=== PATIENT | female | born 1950 | race Caucasian/White ===

== ENCOUNTER 2016-09-05 21:49 | Observation (INO) | payer SELFPAY ==
[2016-09-05] MEDS ORDERED: Sodium Chloride 0.9% 1000 ML 1,000 ML IV STA ×2 (22:05→23:38)
[2016-09-05] MEDS ORDERED: Phenergan 25 MG INJ IV ONE ×2 (22:05→23:40)
[2016-09-05] MEDS ORDERED: Hydromorphone 1 mg/ml Ampule IV ONE (22:05)
[2016-09-05] MEDS ORDERED: Phenergan 25 MG INJ ONE ×2 (22:10→23:43)
[2016-09-05] MEDS ORDERED: Sodium Chloride 0.9% 1000 ML 1,000 ML ONE ×2 (22:10→23:43)
[2016-09-05] MEDS ORDERED: Hydromorphone 1 mg/ml Ampule ONE (22:10)
--- NOTE | 2016-09-05 22:13 | ERPHSYRPT ---
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 Unsure how many times she has vomited, sts that she has had 2 episodes of diarrhea tonight. Sts she was fine at 1900 tonight. Also sts abd pain, 8/10. Daughter sts pt is lethargic compared to normal. Triage Nursing Assessment: Pt alert, pt to room per wheelchair. Pt actively shoving finger down throat attempting to make self vomit upon arrival to room. Pt assisted from wheelchair to bed with assist of daughter. Pt skin flushed, warm to touch, skin diaphoretic. Physician History: ONE HOUR AGO ABOUT 2 HOURS AFTER EATING BERMUDIAN FOOD(CHICKEN, SHRIMP AND RICE) PT STARTED WITH VOMITING, DIARRHEA, DIAPHORESIS, SUBJECTIVE FEVER AND UPPER MID ABDOMINAL PAIN. Allergies/Adverse Reactions: levofloxacin [From Levaquin] Allergy (Verified 09/05/16 22:51) Immunizations Up to Date: Yes - Review of Systems Constitutional: Fever Abdominal/Gastrointestinal: Abdominal Pain, Vomiting, Diarrhea Endocrine: Excessive Sweating All Other Systems: Reviewed and Negative - Social History Smoking Status: Current every day smoker Exposure to second hand smoke: No Patient Lives Alone: No - Nursing Vital Signs Nursing Vital Signs: Initial Vital Signs Temperature 96.2 F Temperature Source Rectal Pulse Rate 80 Respiratory Rate 16 Blood Pressure [Right Arm] 136/67 Pain Intensity 8 - Physical Exam General Appearance: alert Eye Exam: PERRL/EOMI Ears, Nose, Throat Exam: TMs normal, pharynx normal, moist mucous membranes Neck Exam: normal inspection Respiratory Exam: lungs clear Cardiovascular Exam: normal heart sounds Gastrointestinal/Abdomen Exam: soft, tenderness (MILD EPIGASTRIC TENDERNESS), other (B.S. MODERATELY HYPERACTIVE AND NORMOTONIC.), No guarding Back Exam: normal range of motion Extremity Exam: normal inspection, No swelling Neurologic Exam: alert, cooperative Skin Exam: diaphoresis, other (FACE FLUSHED) SpO2 Interpretation: normal SpO2: 98 Oxygen Delivery: Room Air - Course Nursing assessment & vital signs reviewed: Yes Ordered Tests: Active Orders 24 hr Category Date Time Status Clean Catch Urine Specimen STAT Care 09/05/16 22:05 Active IV Insertion STAT Care 09/05/16 22:05 Active ABDOMEN AND PELVIS W/0 CONTRAS [CT] Stat Exams 09/05/16 22:06 Taken AMYLASE Stat Lab 09/05/16 22:38 Completed BLOOD CULTURE Stat Lab 09/05/16 23:58 Received CBC W DIFF Stat Lab 09/05/16 22:38 Completed CMP Stat Lab 09/05/16 22:38 Completed LIPASE Stat Lab 09/05/16 22:38 Completed Lactic Acid Urgent Lab 09/05/16 23:57 Completed MAG [MAGNESIUM] Stat Lab 09/05/16 22:38 Completed UA W/ MICROSCOPIC Stat Lab 09/05/16 23:00 Completed Transfer Order Routine Transfer 09/06/16 00:39 Ordered Medication Summary Discontinued Medications Generic Name Dose Route Start Last Admin Trade Name Freq PRN Reason Stop Dose Admin Hydromorphone HCl 1 mg 09/05/16 22:05 09/05/16 22:12 Hydromorphone 1 Mg/Ml Ampule IV 09/05/16 22:06 1 mg STAT ONE Administration Hydromorphone HCl Confirm 09/05/16 22:10 Hydromorphone 1 Mg/Ml Ampule Administered 09/05/16 22:11 Dose 1 mg .ROUTE .STK-MED ONE Sodium Chloride 1,000 mls @ 999 mls/hr 09/05/16 22:05 09/05/16 22:12 Sodium Chloride 0.9% 1000 Ml IV 09/05/16 23:05 999 mls/hr .Q1H1M STA Administration Sodium Chloride Confirm 09/05/16 22:10 Sodium Chloride 0.9% 1000 Ml Administered 09/05/16 22:11 Dose 1,000 mls @ ud .ROUTE .STK-MED ONE Sodium Chloride 1,000 mls @ 999 mls/hr 09/05/16 23:38 09/05/16 23:46 Sodium Chloride 0.9% 1000 Ml IV 09/06/16 00:38 999 mls/hr .Q1H1M STA Administration Sodium Chloride Confirm 09/05/16 23:43 Sodium Chloride 0.9% 1000 Ml Administered 09/05/16 23:44 Dose 1,000 mls @ ud .ROUTE .STK-MED ONE Ondansetron HCl 4 mg 09/05/16 22:49 09/05/16 22:55 Zofran 4 Mg/2 Ml Vial IV 09/05/16 22:50 4 mg STAT ONE Administration Ondansetron HCl Confirm 09/05/16 22:50 Zofran 4 Mg/2 Ml Vial Administered 09/05/16 22:51 Dose 4 mg .ROUTE .STK-MED ONE Promethazine HCl 12.5 mg 09/05/16 22:05 09/05/16 22:12 Phenergan 25 Mg Inj IV 09/05/16 22:06 12.5 mg STAT ONE Administration Promethazine HCl Confirm 09/05/16 22:10 Phenergan 25 Mg Inj Administered 09/05/16 22:11 Dose 25 mg .ROUTE .STK-MED ONE Promethazine HCl 12.5 mg 09/05/16 23:40 09/05/16 23:46 Phenergan 25 Mg Inj IV 09/05/16 23:41 12.5 mg STAT ONE Administration Promethazine HCl Confirm 09/05/16 23:43 Phenergan 25 Mg Inj Administered 09/05/16 23:44 Dose 25 mg .ROUTE .STK-MED ONE Lab/Rad Data: Laboratory Result Diagrams 09/05/16 22:38 09/05/16 22:38 Laboratory Results 09/05/16 09/05/16 09/05/16 Range/Units 23:57 23:00 22:38 WBC (4.0-10.5) K/mm3 RBC (4.1-5.4) M/mm3 Hgb (12.0-16.0) gm/dl Hct (35-47) % MCV (78-100) fl MCH (26-32) pg MCHC (32-36) g/dl RDW (11.5-14.0) % Plt Count (150-450) K/mm3 MPV (6-9.5) fl Gran % (36.0-66.0) % Lymphocytes % (24.0-44.0) % Monocytes % (0.0-12.0) % Eosinophils % (0.00-5.0) % Basophils % (0.0-0.4) % Basophils # (0-0.4) Sodium (136-145) mEq/L Potassium (3.5-5.1) mEq/L Chloride (98-107) mEq/L Carbon Dioxide (21-32) mEq/L Anion Gap (5-15) MEQ/L BUN (9-20) mg/dL Creatinine (0.55-1.30) mg/dl Estimated GFR ML/MIN Glucose (70-110) MG/DL Lactic Acid 1.0 (0.4-2.0) Calcium (8.5-10.1) mg/dL Magnesium 2.0 (1.8-2.4) mg/dL Total Bilirubin (0.2-1.0) mg/dL AST (15-37) U/L ALT (12-78) U/L Alkaline Phosphatase (46-116) U/L Serum Total Protein (6.4-8.2) gm/dL Albumin (3.4-5.0) g/dL Amylase (25-115) U/L Lipase (73-393) U/L Ur Collection Type CATH Urine Color YELLOW (YELLOW) Urine Appearance CLEAR (CLEAR) Urine pH 5.0 (5-6) Ur Specific [place] 1.020 (1.005-1.025) Urine Protein TRACE (Negative) Urine Glucose (UA) NEGATIVE (NEGATIVE) mg/dL Urine Ketones SMALL-15 (NEGATIVE) Urine Nitrite NEGATIVE (NEGATIVE) Urine Bilirubin SMALL (NEGATIVE) Urine Urobilinogen 0.2 (0-1) mg/dL Urine WBC (Auto) NEGATIVE (NEGATIVE) Urine RBC (Auto) NEGATIVE (0-5) Ulices/ul Ur Epithelial Cells RARE (FEW) /HPF Urine Bacteria RARE (NEGATIVE) /HPF Specimen Received 09/05/16:2300 09/05/16 09/05/16 Range/Units 22:38 22:38 WBC 6.3 (4.0-10.5) K/mm3 RBC 5.20 (4.1-5.4) M/mm3 Hgb 15.2 (12.0-16.0) gm/dl Hct 45.6 (35-47) % MCV 87.7 (78-100) fl MCH 29.2 (26-32) pg MCHC 33.3 (32-36) g/dl RDW 13.7 (11.5-14.0) % Plt Count 236 (150-450) K/mm3 MPV 10.3 H (6-9.5) fl Gran % 71.4 H (36.0-66.0) % Lymphocytes % 21.1 L (24.0-44.0) % Monocytes % 6.2 (0.0-12.0) % Eosinophils % 1.0 (0.00-5.0) % Basophils % 0.3 (0.0-0.4) % Basophils # 0.02 (0-0.4) Sodium 140 (136-145) mEq/L Potassium 3.7 (3.5-5.1) mEq/L Chloride 105 (98-107) mEq/L Carbon Dioxide 19.1 L (21-32) mEq/L Anion Gap 19.8 H (5-15) MEQ/L BUN 18 (9-20) mg/dL Creatinine 1.09 (0.55-1.30) mg/dl Estimated GFR 54 ML/MIN Glucose 125 H (70-110) MG/DL Lactic Acid (0.4-2.0) Calcium 9.3 (8.5-10.1) mg/dL Magnesium (1.8-2.4) mg/dL Total Bilirubin 0.8 (0.2-1.0) mg/dL AST 22 (15-37) U/L ALT 23 (12-78) U/L Alkaline Phosphatase 109 (46-116) U/L Serum Total Protein 8.2 (6.4-8.2) gm/dL Albumin 4.1 (3.4-5.0) g/dL Amylase 42 (25-115) U/L Lipase 113 (73-393) U/L Ur Collection Type Urine Color (YELLOW) Urine Appearance (CLEAR) Urine pH (5-6) Ur Specific [place] (1.005-1.025) Urine Protein (Negative) Urine Glucose (UA) (NEGATIVE) mg/dL Urine Ketones (NEGATIVE) Urine Nitrite (NEGATIVE) Urine Bilirubin (NEGATIVE) Urine Urobilinogen (0-1) mg/dL Urine WBC (Auto) (NEGATIVE) Urine RBC (Auto) (0-5) Ulices/ul Ur Epithelial Cells (FEW) /HPF Urine Bacteria (NEGATIVE) /HPF Specimen Received - Progress Discussed with : Erika (OBS - [id number]) - Departure Time of Disposition: 00:45 Departure Disposition: Observation Clinical Impression: ABDOMINAL PAIN, VOMITING, DIARRHEA Condition: Fair Critical Care Time: No Referrals: MILTON MCDONALD [Primary Care Provider] -
[2016-09-05 22:44] LABS: BASOPHIL % 0.3 % (0.0-0.4); Granulocytes % 71.4 % (36.0-66.0); Lymphocytes % 21.1 % (24.0-44.0); Mean Cell Volume 87.7 fl (78-100); Mean Corpuscular Hemoglobin 29.2 pg (26-32); Mean Platelet Volume 10.3 fl (6-9.5); Monocytes % 6.2 % (0.0-12.0); Platelet Count 236 K/mm3 (150-450); Red Cell Distribution Width 13.7 % (11.5-14.0); White Blood Count 6.3 K/mm3 (4.0-10.5)
[2016-09-05] MEDS ORDERED: Zofran 4 MG/2 ML VIAL IV ONE (22:49)
[2016-09-05] MEDS ORDERED: Zofran 4 MG/2 ML VIAL ONE (22:50)
[2016-09-05 23:07] LABS: ALBUMIN 4.1 g/dL (3.4-5.0); ANION GAP 19.8 MEQ/L (5-15); BILIRUBIN,TOTAL 0.8 mg/dL (0.2-1.0); Carbon Dioxide 19.1 mEq/L (21-32); Potassium 3.7 mEq/L (3.5-5.1); Total Protein 8.2 gm/dL (6.4-8.2)
[2016-09-05 23:08] LABS: Collection Type CATH
[2016-09-05 23:09] LABS: COMPLETE URINE MICROSCOPIC? YES
[2016-09-05 23:15] LABS: Bacteria RARE /HPF (NEGATIVE)
[2016-09-05 23:16] LABS: Epithelial Cells RARE /HPF (FEW)
[2016-09-06] MEDS ORDERED: DILAUDID 2 MG INJECTION IV PRN (01:00)
[2016-09-06] MEDS ORDERED: Sodium Chloride 0.9% 1000 ML 1,000 ML IV SCH (01:00)
[2016-09-06] MEDS ORDERED: Phenergan 25 MG INJ IV PRN (01:00)
[2016-09-06] MEDS: Zofran 4 MG/2 ML VIAL IV PRN ×2 (02:57→09:43)
[2016-09-06] MEDS ORDERED: PROVENTIL 2.5 MG/3 ML NEB IH PRN (03:45)
[2016-09-06 05:30] LABS: BASOPHIL % 0.2 % (0.0-0.4); Eosinophil % 0.5 % (0.00-5.0); Granulocytes % 82.6 % (36.0-66.0); Lymphocytes % 8.4 % (24.0-44.0); Mean Cell Volume 87.8 fl (78-100); Mean Corpuscular Hemoglobin 29.1 pg (26-32); Monocytes % 8.3 % (0.0-12.0); Platelet Count 235 K/mm3 (150-450); Red Blood Count 4.74 M/mm3 (4.1-5.4); Red Cell Distribution Width 13.7 % (11.5-14.0); White Blood Count 8.5 K/mm3 (4.0-10.5)
[2016-09-06 06:02] LABS: ALBUMIN 3.4 g/dL (3.4-5.0); ALKALINE PHOSPHATASE 87 U/L (46-116); ANION GAP 16.3 MEQ/L (5-15); BILIRUBIN,TOTAL 0.8 mg/dL (0.2-1.0); BLOOD UREA NITROGEN 15 mg/dL (9-20); CHLORIDE 109 mEq/L (98-107); Carbon Dioxide 22.7 mEq/L (21-32); Glucose 118 MG/DL (70-110); LIPASE 60 U/L (73-393); Potassium 4.1 mEq/L (3.5-5.1); SGOT/AST 17 U/L (15-37); SGPT/ALT 20 U/L (12-78); SODIUM 144 mEq/L (136-145); Total Protein 7.1 gm/dL (6.4-8.2)
[2016-09-06] MEDS ORDERED: Advair Hfa 230/21 Mcg COMMON CANISTER IH SCH (07:00)
[2016-09-06 07:44] VITALS: BP 128/70; PULSE 86; O2SAT 96
--- NOTE | 2016-09-06 08:20 | PCM.SSS ---
History of Present Illness - Chief Complaint Chief Complaint: Abdominal pain, vomiting, diarrhea History of Present Illness: is a 66 year old female who ate [place] in yesterday then about an hour after that felt she urgently needed to have a BM. She stopped at a gas station; no diarrhea at that time. She then went to her brother's house here in town and started vomiting. She had copious amounts of diarrhea as well , liquid. Her last BM had quite a bit of bright red blood in it. She has not had any BM at the hospital. Last vomited in the ER. She was having periumbilical abd pain, 8/10, but that has completely resolved. She would like to try something to drink and to d/c home. - Review of Systems Constitutional: Chills Abdominal/Gastrointestinal: Abdominal Pain, Nausea, Vomiting, Diarrhea Skin: Rash (chronic x years; sees dermatology) All Other Systems: Reviewed and Negative Medications & Allergies Home Medications: Home Medication List Albuterol 17 gm IH Q4H PRN PRN 09/06/16 [History Confirmed 09/06/16] Alprazolam 0.25 mg [xanAX 0.25 MG] 0.5 mg PO TID PRN PRN 09/06/16 [ History Confirmed 09/06/16] Carvedilol 6.25 mg [Coreg 6.25 MG] 12.5 mg PO BID 09/06/16 [History Confirmed 09/06/16] Citalopram Hydrobromide 20 mg* [ceLEXa 20 MG] 20 mg PO HS 09/06/16 [History Confirmed 09/06/16] Furosemide 20 mg [Lasix 20 mg] 20 mg PO DAILY 09/06/16 [History Confirmed 09/06/16] Levothyroxine Sodium 100 Mcg [Synthroid 100 Mcg] 100 mcg PO DAILY 09/06/16 [History Confirmed 09/06/16] Omeprazole 20 MG [Prilosec 20 mg] 20 mg PO BID 09/06/16 [History Confirmed 09/06] Spironolactone 25 mg PO DAILY 09/06/16 [History Confirmed 09/06/16] Allergies/Adverse Reactions: Allergies Allergy/AdvReac Type Severity Reaction Status Date / Time levofloxacin [From Levaquin] Allergy Verified 09/05/16 22:51 - Past Medical History Cardiac History: Hypertension Respiratory History: Asthma Endocrine Medical History: Hypothyroidism, Other History: Other Pyscho-Social History: Depression Comment: [place] - Female History Are you now?: No - Past Surgical History Past Surgical History: Yes GI Surgical History: Appendectomy Genitourinary Surgical Hx: Kidney Surgery Female Surgical History: Section Other Surgical History: colon surgery, partial kidney removal - Social History Smoking Status: Current every day smoker Exposure to second hand smoke: No Alcohol: None Drug Use: none - Physical Exam Vital Signs: Vital Signs - 24 hr Temp Pulse Resp BP Pulse Ox 09/06/16 07:43 97.8 F 86 18 128/70 96 09/06/16 06:57 90 16 93 L 09/06/16 04:00 97.9 F 87 16 136/73 95 09/06/16 01:33 98.0 F 89 15 128/68 95 09/06/16 00:58 86 16 120/56 98 09/06/16 00:45 98 09/05/16 23:50 96.2 F 80 16 136/67 97 09/05/16 23:10 76 16 122/72 96 09/05/16 22:03 74 16 136/97 98 General Appearance: no apparent distress Neurologic Exam: alert, oriented x 3, cooperative Eye Exam: eyes nml inspection Neck Exam: normal inspection, non-tender, No lymphadenopathy Respiratory Exam: normal breath sounds, lungs clear, No crackles/rales, No rhonchi, No wheezing Cardiovascular Exam: regular rate/rhythm, normal heart sounds, No murmur Gastrointestinal/Abdomen Exam: soft, normal bowel sounds, No tenderness, No distention, No mass, No guarding, No rebound Back Exam: normal inspection, No CVA tenderness Extremity Exam: No pedal edema, No swelling Skin Exam: warm, dry, rash (diffuse macular erythema on UE bilat) Results - Labs Lab/Micro Results: Lab Results-Last 24 Hours 09/06/16 09/06/16 Range/Units 05:20 05:20 WBC 8.5 (4.0-10.5) K/mm3 RBC 4.74 (4.1-5.4) M/mm3 Hgb 13.8 (12.0-16.0) gm/dl Hct 41.6 (35-47) % MCV 87.8 (78-100) fl MCH 29.1 (26-32) pg MCHC 33.2 (32-36) g/dl RDW 13.7 (11.5-14.0) % Plt Count 235 (150-450) K/mm3 MPV 10.0 H (6-9.5) fl Gran % 82.6 H (36.0-66.0) % Lymphocytes % 8.4 L (24.0-44.0) % Monocytes % 8.3 (0.0-12.0) % Eosinophils % 0.5 (0.00-5.0) % Basophils % 0.2 (0.0-0.4) % Basophils # 0.02 (0-0.4) Sodium 144 (136-145) mEq/L Potassium 4.1 (3.5-5.1) mEq/L Chloride 109 H (98-107) mEq/L Carbon Dioxide 22.7 (21-32) mEq/L Anion Gap 16.3 H (5-15) MEQ/L BUN 15 (9-20) mg/dL Creatinine 0.97 (0.55-1.30) mg/dl Estimated GFR > 60 ML/MIN Glucose 118 H (70-110) MG/DL Calcium 8.2 L (8.5-10.1) mg/dL Total Bilirubin 0.8 (0.2-1.0) mg/dL AST 17 (15-37) U/L ALT 20 (12-78) U/L Alkaline Phosphatase 87 (46-116) U/L Serum Total Protein 7.1 (6.4-8.2) gm/dL Albumin 3.4 (3.4-5.0) g/dL Amylase 28 (25-115) U/L Lipase 60 L (73-393) U/L - Other Procedures and Tests Respiratory Therapy 09/06/16 03:45 Respiratory MDI BID 09/06/16 03:46 neb [Respiratory Nebulizer] PRN Assessment/Plan (1) Abdominal pain Current Visit: Yes Status: Acute Assessment & Plan: unsure the etiology, but it has resolved. OK to try drink & advance diet carefully. If pravin po can d/c home this morning. Code(s): R10.9 - UNSPECIFIED ABDOMINAL PAIN (2) Vomiting and diarrhea Current Visit: Yes Status: Acute Assessment & Plan: Resolved. Code(s): R11.10 - VOMITING, UNSPECIFIED; R19.7 - DIARRHEA, UNSPECIFIED (3) Hematochezia Current Visit: Yes Status: Acute Assessment & Plan: will send her home with hemoccult cards. Likely had blood due to her copious diarrhea. However with PMHx of bowel resection. Would recommend f/u with PCP outpatient. Code(s): K92.1 - MELENA (4) Renal insufficiency Current Visit: Yes Status: Chronic Assessment & Plan: improved since admission. She does see a medical billing specialist. Hospital Summary - Hospital Course Hospital Course: Pt admitted with acute onset of abd pain, n/v/d. CT abd pelvis without acute findings. CO2 decreased and Cr increased mildly, otherwise labs ok, no elevated WBC count. Pt with hx bowel resection. Lactate 1.0. Pt started feeling better overnight; no vomiting or diarrhea since arriving to med surg. This morning she denies any abd pain and would like to eat and d/c home. - Vitals & Intake/Output Vital Signs: Vital Signs Temperature 97.8 F 09/06/16 07:43 Pulse Rate 86 09/06/16 07:43 Respiratory Rate 18 09/06/16 07:43 Blood Pressure 128/70 09/06/16 07:43 O2 Sat by Pulse Oximetry 96 09/06/16 07:43 Intake & Output: Intake & Output 09/03/16 09/04/16 09/05/16 09/06/16 11:59 11:59 11:59 11:59 Intake Total 239 Output Total 300 Balance -61 Weight 89.448 kg - Lab Result Diagrams: 09/06/16 05:20 09/06/16 05:20 Lab Results-Last 24 Hrs: Lab Results-Last 24 Hours 09/06/16 09/06/16 Range/Units 05:20 05:20 WBC 8.5 (4.0-10.5) K/mm3 RBC 4.74 (4.1-5.4) M/mm3 Hgb 13.8 (12.0-16.0) gm/dl Hct 41.6 (35-47) % MCV 87.8 (78-100) fl MCH 29.1 (26-32) pg MCHC 33.2 (32-36) g/dl RDW 13.7 (11.5-14.0) % Plt Count 235 (150-450) K/mm3 MPV 10.0 H (6-9.5) fl Gran % 82.6 H (36.0-66.0) % Lymphocytes % 8.4 L (24.0-44.0) % Monocytes % 8.3 (0.0-12.0) % Eosinophils % 0.5 (0.00-5.0) % Basophils % 0.2 (0.0-0.4) % Basophils # 0.02 (0-0.4) Sodium 144 (136-145) mEq/L Potassium 4.1 (3.5-5.1) mEq/L Chloride 109 H (98-107) mEq/L Carbon Dioxide 22.7 (21-32) mEq/L Anion Gap 16.3 H (5-15) MEQ/L BUN 15 (9-20) mg/dL Creatinine 0.97 (0.55-1.30) mg/dl Estimated GFR > 60 ML/MIN Glucose 118 H (70-110) MG/DL Calcium 8.2 L (8.5-10.1) mg/dL Total Bilirubin 0.8 (0.2-1.0) mg/dL AST 17 (15-37) U/L ALT 20 (12-78) U/L Alkaline Phosphatase 87 (46-116) U/L Serum Total Protein 7.1 (6.4-8.2) gm/dL Albumin 3.4 (3.4-5.0) g/dL Amylase 28 (25-115) U/L Lipase 60 L (73-393) U/L - Procedures and Test Procedures and Tests throughout Hospitalization: Therapy Orders & Screens 09/06/16 02:22 RT Screen per Nursing Assess ONCE Comment: Protocol Order Physician Instructions: Greater than 3 points order RT Admission Screen Reason For Exam: Triggered on Admission Diagnosis: Abdominal pain, vomiting, diarrhea Diagnosis: Abdominal pain, vomiting, diarrhea Pneumonia: No Home O2: No Asthma: Yes CHF: No Home CPAP/BIPAP: No Home Nebs/MDI: Yes Total Points: 9 Smoking Cessation Education ONCE Comment: Diagnosis: Abdominal pain, vomiting, diarrhea Smoking Status: Current every day smoker Have you smoked in the past 12 months: Yes Approximately how many cigarettes per day: 0.5 pack per day Do you dip or chew tobacco: No 09/06/16 03:45 Respiratory MDI BID Comment: PT USES SYMBICORT AT Diagnosis: Abdominal pain, vomiting, diarrhea 09/06/16 03:46 neb [Respiratory Nebulizer] PRN Comment: DUONEB Q4PRN Diagnosis: Abdominal pain, vomiting, diarrhea - Discharge Disposition: Home, Self-Care Condition: Stable Prescriptions: Continue Citalopram Hydrobromide 20 mg* [ceLEXa 20 MG] 20 mg PO HS Albuterol 17 gm IH Q4H PRN PRN PRN Reason: Shortness Of Breath Furosemide 20 mg [Lasix 20 mg] 20 mg PO DAILY Spironolactone 25 mg PO DAILY Carvedilol 6.25 mg [Coreg 6.25 MG] 12.5 mg PO BID Omeprazole 20 MG [Prilosec 20 mg] 20 mg PO BID Alprazolam 0.25 mg [xanAX 0.25 MG] 0.5 mg PO TID PRN PRN PRN Reason: Anxiety Levothyroxine Sodium 100 Mcg [Synthroid 100 Mcg] 100 mcg PO DAILY Follow up with: MILTON MCDONALD [Primary Care Provider] -
--- NOTE | 2016-09-06 08:59 | XRAY ---
Indication: Nausea, vomiting, and diarrhea. Multiple contiguous axial images obtained through the abdomen and pelvis without contrast as ordered. Comparison: None Lung bases demonstrates minimal bibasilar fibrosis/scarring and right infrahilar calcified granulomas. Heart is not enlarged. Small pericardial effusion/thickening. Moderate-sized hiatal hernia. Stomach is distended with food. Noncontrasted bowel loops appears nonobstructed with note of previous partial colectomy with intact anastomosis. Bowel loops are uniformly fluid distended with some fluid leveling either ileus versus enteritis. Distal sigmoid and rectum also fluid filled favoring diarrhea. No free fluid/air. There are scattered tiny mesenteric nodes with minimal stranding, possible adenitis. Left kidney demonstrates upper pole surgery. A few calcified hepatic/splenic granulomas. Remaining liver, gallbladder, pancreas, spleen, adrenal glands, kidneys, ureters, bladder, and uterus appear unremarkable for noncontrast exam. Minimal aortoiliac calcifications without AAA. Osseous structures intact with lumbosacral junction degenerative disc disease. 2 cm irregular/serpiginous left intertrochanteric lytic lesion with sclerotic margins, possible bone infarct. Impression: 1. Previous bowel resection without obstruction. 2. Fluid distended bowel loops with fluid leveling, ileus versus enteritis. 3. Scattered tiny mesenteric nodes favoring mesenteric adenitis. 4. Hiatal hernia and evidence for old granulomatous disease. 5. Left intertrochanteric bone lesion as detailed. Rule out bone infarct. MRI may yield further information if clinically warranted. Comment: Preliminary interpretation was made by [facility]. Fluid distended bowel loops and tiny mesenteric nodes not reported and are not felt to be critical. CT DI 22.41
[2016-09-06] MEDS ORDERED: PROTONIX 40 MG IV IV SCH (10:00)
[2016-09-06] MEDS ORDERED: xanAX 0.25 MG PO PRN (10:12)
[2016-09-06] MEDS ORDERED: NON-FORMULARY ITEM (Albuterol [Albuterol] 17 GM) IH PRN (10:12)
[2016-09-06] MEDS ORDERED: ceLEXa 20 MG PO SCH (22:00)
[2016-09-06] MEDS ORDERED: NON-FORMULARY ITEM (Omeprazole 20 Mg [Prilosec 20 Mg] 20 MG) PO SCH (22:00)
[2016-09-06] MEDS ORDERED: Coreg 6.25 MG PO SCH (22:00)
[2016-09-07] MEDS ORDERED: Aldactone 25 MG PO SCH (10:00)
[2016-09-07] MEDS ORDERED: LASIX 20 MG PO SCH (10:00)
[2016-09-07] MEDS ORDERED: SYNTHROID 100 MCG PO SCH (10:00)
== END 2016-09-06 10:05 | disposition home or self-care (01) ==
LOC: ED 21:49 → MED SURG 09-06 00:55
PROVIDERS: ADMIT Family Medicine; ATTEND Family Medicine
DX: R10.9 Unspecified abdominal pain (principal); R11.10 Vomiting, unspecified; R19.7 Diarrhea, unspecified; K92.1 Melena; N18.9 Chronic kidney disease, unspecified
CPT/HCPCS: 36000; 36415; 74176; 80053; 81000; 82150; 83605; 83690; 83735; 85025; 87040; 93268; 94640; 94760; 96374; 96375; 99285; G0378; J1170; J2405; J2550; A9270-GY

== ENCOUNTER 2017-07-18 05:48 | Emergency (ER) | payer MEDICARE, OTHER ==
[2017-07-18] MEDS ORDERED: Valium 5 MG PO ONE (06:04)
[2017-07-18] MEDS ORDERED: Valium 5 MG ONE (06:07)
--- NOTE | 2017-07-18 06:09 | ERPHSYRPT ---
- History of Present Illness Time Seen by Provider: 07/18/17 05:55 Source: patient Exam Limitations: no limitations Patient Subjective Stated Complaint: pt was sitting with family on med surg when she got hot and began having chest pain. denies chest pain at this time. states she cont to feel very hot. Triage Nursing Assessment: pt alert and oriented, asnwers questions approp. pt arrive per wheelchair by house supv. pt ambulate from wheelchair to stretcher per self. steady gait noted. respirations nonlabored. heart rate 72 sinus rhythm on monitor. Physician History: ABOUT 15 MINUTES AGO PT WAS [facility] ROOM ON [facility]-SURG AND STAFF WAS GETTING READY TO DRAW BLOOD WHEN PT SUDDENLY FELT HOT, HAD MID ANTERIOR CHEST PRESSURE LASTING FOR 2 MINUTES AND LEFT SHOULDER PAIN LASTING FOR 1 SECOND. THE CHEST PRESSURE AND LEFT SHOULDER PAIN DID NOT RETURN AND PT THINKS THIS WAS DUE TO ANXIETY WHICH SHE HAS HAD BEFORE. PT DENIES SHORTNESS OF AIR, NAUSEA, VOMITING, ABDOMINAL PAIN; ADMITS TO AN INTERMITTENT HEADACHE FOR THE PAST 2 DAYS. PT WAS ON A Z-RUDOLPH AND STEROIDS LAST WEEK FOR BRONCHITIS. Allergies/Adverse Reactions: levofloxacin [From Levaquin] Allergy (Verified 07/18/17 06:04) theophylline Allergy (Verified 07/18/17 06:04) Home Medications: Albuterol 17 gm IH Q4H PRN PRN 09/06/16 [History] Alprazolam 0.25 mg [xanAX 0.25 MG] 0.5 mg PO TID PRN PRN 09/06/16 [History ] Carvedilol 6.25 mg [Coreg 6.25 MG] 12.5 mg PO BID 09/06/16 [History] Citalopram Hydrobromide 20 mg* [ceLEXa 20 MG] 20 mg PO HS 09/06/16 [History] Furosemide 20 mg [Lasix 20 mg] 20 mg PO DAILY 09/06/16 [History] Levothyroxine Sodium 100 Mcg [Synthroid 100 Mcg] 100 mcg PO DAILY 09/06/16 [History] Omeprazole 20 MG [Prilosec 20 mg] 20 mg PO BID 09/06/16 [History] Spironolactone 25 mg PO DAILY 09/06/16 [History] Famotidine 20 mg [Pepcid 20 MG] 40 mg PO 07/18/17 [History] Hx Tetanus, Diphtheria Vaccination/Date Given: Yes Hx Influenza Vaccination/Date Given: Yes Hx Pneumococcal Vaccination/Date Given: No Immunizations Up to Date: Yes - Review of Systems Constitutional: No Fever, No Chills Respiratory: No Dyspnea Cardiac: Chest Pain Abdominal/Gastrointestinal: No Abdominal Pain, No Nausea, No Vomiting Musculoskeletal: Joint Pain (LEFT SHOULDER PAIN) Neurological: Headache Endocrine: No Excessive Sweating All Other Systems: Reviewed and Negative - Past Medical History Pertinent Past Medical History: Yes Cardiac History: Hypertension Respiratory History: Asthma Endocrine Medical History: Hypothyroidism, Other History: Other Psycho-Social History: Depression Other Medical History: Hashimotos - Past Surgical History Past Surgical History: Yes Gastrointestinal: Appendectomy, Colon Resection Genitourinary: Kidney Surgery Female Surgical History: Section Other Surgical History: colon surgery, partial kidney removal - Social History Smoking Status: Current every day smoker How long have you smoked: 30yrs Exposure to second hand smoke: No Drug Use: none Patient Lives Alone: No - Nursing Vital Signs Nursing Vital Signs: Initial Vital Signs Temperature 98.8 F 07/18/17 05:51 Pulse Rate 74 07/18/17 05:51 Respiratory Rate 20 07/18/17 05:51 Blood Pressure 148/83 07/18/17 05:51 O2 Sat by Pulse Oximetry 98 07/18/17 05:51 Pain Scale Pain Intensity 0 - Physical Exam General Appearance: alert, anxiety Eye Exam: PERRL/EOMI Ears, Nose, Throat Exam: TMs normal, pharynx normal, moist mucous membranes Neck Exam: normal inspection Respiratory Exam: lungs clear Cardiovascular Exam: normal heart sounds Gastrointestinal/Abdomen Exam: soft, normal bowel sounds Back Exam: normal range of motion Extremity Exam: normal inspection, No swelling Neurologic Exam: alert, cooperative, other (ANXIOUS) Skin Exam: warm, dry SpO2 Interpretation: normal SpO2: 98 Oxygen Delivery: Room Air - Course Nursing assessment & vital signs reviewed: Yes EKG Interpreted by Me: RATE (74), Sinus Rhythm, NORMAL AXIS, NORMAL INTERVALS - Radiology Exams Chest X-ray Interpretation: Interpreted by me, No Pneumonia Ordered Tests: Active Orders 24 hr Category Date Time Status EKG-ER Only STAT Care 07/18/17 06:02 Active CHEST 1 VIEW (PORTABLE) Stat Exams 07/18/17 06:03 Taken CBC W DIFF Stat Lab 07/18/17 06:18 Received CMP Stat Lab 07/18/17 06:18 Completed MAGNESIUM Stat Lab 07/18/17 06:18 Completed TROPONIN Q3H Lab 07/18/17 06:18 Completed TROPONIN Q3H Lab 07/18/17 09:15 Ordered TROPONIN Q3H Lab 07/18/17 12:15 Ordered TROPONIN Q3H Lab 07/18/17 15:15 Ordered TROPONIN Q3H Lab 07/18/17 18:15 Ordered Medication Summary Discontinued Medications Generic Name Dose Route Start Last Admin Trade Name Freq PRN Reason Stop Dose Admin Diazepam 10 mg 07/18/17 06:04 07/18/17 06:09 Valium 5 Mg PO 07/18/17 06:05 10 mg STAT ONE Administration Diazepam Confirm 07/18/17 06:07 Valium 5 Mg Administered 07/18/17 06:08 Dose 10 mg .ROUTE .STK-MED ONE Lab/Rad Data: Laboratory Result Diagrams 07/18/17 06:18 Laboratory Results 07/18/17 07/18/17 Range/Units 06:18 06:18 Sodium 140 (136-145) mEq/L Potassium 4.6 (3.5-5.1) mEq/L Chloride 105 (98-107) mEq/L Carbon Dioxide 28.6 (21-32) mEq/L Anion Gap 10.8 (5-15) MEQ/L BUN 19 (9-20) mg/dL Creatinine 0.97 (0.55-1.30) mg/dl Estimated GFR > 60 ML/MIN Glucose 100 (70-110) MG/DL Calcium 9.1 (8.5-10.1) mg/dL Magnesium 2.3 (1.8-2.4) mg/dL Total Bilirubin 0.50 (0.2-1.0) mg/dL AST 13 L (15-37) U/L ALT 19 (12-78) U/L Alkaline Phosphatase 98 (46-116) U/L Troponin I < 0.017 (0.000-0.056) ng/ml Serum Total Protein 7.6 (6.4-8.2) gm/dL Albumin 3.7 (3.4-5.0) g/dL - Departure Time of Disposition: 08:00 Departure Disposition: Home Clinical Impression: CHEST PRESSURE, ANXIETY, HTN, ASTHMA, HYPOTHYROISIDM, DEPRESSION Condition: Stable Critical Care Time: No Referrals: MILTON MCDONALD [Primary Care Provider] - Instructions: Chest Pain (DC) Additional Instructions: FOLLOW UP WITH PRIVATE DOCTOR TOMORROW.
[2017-07-18 06:57] LABS: ALBUMIN 3.7 g/dL (3.4-5.0); ALKALINE PHOSPHATASE 98 U/L (46-116); ANION GAP 10.8 MEQ/L (5-15); BLOOD UREA NITROGEN 19 mg/dL (9-20); CHLORIDE 105 mEq/L (98-107); Calcium 9.1 mg/dL (8.5-10.1); Carbon Dioxide 28.6 mEq/L (21-32); Creatinine 1 0.97 mg/dl (0.55-1.30); EST GLOMERULAR FILTRATION RATE > 60 ML/MIN; Glucose 100 MG/DL (70-110); MAGNESIUM 2.3 mg/dL (1.8-2.4); Potassium 4.6 mEq/L (3.5-5.1); SGOT/AST 13 U/L (15-37); SGPT/ALT 19 U/L (12-78); SODIUM 140 mEq/L (136-145); Total Protein 7.6 gm/dL (6.4-8.2)
[2017-07-18 07:27] VITALS: O2SAT 98
[2017-07-18 08:15] VITALS: BP 142/79; PULSE 76
--- NOTE | 2017-07-18 09:03 | XRAY ---
Indication: Chest pain. Comparison: March 08, 2010. Portable chest unchanged again demonstrating normal heart and lungs with hilar calcified nodes. Bony thorax intact. No new/acute findings.
== END 2017-07-18 08:14 | disposition home or self-care (01) ==
LOC: ED 05:48
DX: R07.89 Other chest pain (principal); F41.9 Anxiety disorder, unspecified; I10 Essential (primary) hypertension; Z79.899 Other long term (current) drug therapy; J45.909 Unspecified asthma, uncomplicated; F32.9 Major depressive disorder, single episode, unspecified; E03.9 Hypothyroidism, unspecified
CPT/HCPCS: 36415; 71045; 80053; 83735; 84484; 85025; 93005; 93041; 99284; A9270-GY

== ENCOUNTER 2021-04-25 13:23 | Emergency (ER) | payer MEDICARE, OTHER ==
[2021-04-25] MEDS ORDERED: solu-MEDROL 125 MG, Sterile H2O 10 ml 2 ML IM ONE ×2 (13:57)
[2021-04-25] MEDS ORDERED: Sterile H2O 10 ml IJ ONE (14:08)
[2021-04-25] MEDS ORDERED: solu-MEDROL ONE (14:08)
--- NOTE | 2021-04-25 14:23 | XRAY ---
Indication: Cough. Suspect Covid 19. Comparison: July 18, 2017. Portable chest remains clear. Heart not enlarged again with right hilar calcified nodes. Bony thorax intact again with mild osteopenia, degenerative changes, and minimal dextroscoliosis. Impression: Continued nonacute chest with chronic features.
[2021-04-25 14:53] LABS: INFLUENZA A NEGATIVE (NEGATIVE); INFLUENZA B NEGATIVE (NEGATIVE)
--- NOTE | 2021-04-25 15:24 | ERPHSYRPT ---
- History of Present Illness Time Seen by Provider: 04/25/21 13:32 Source: patient Exam Limitations: no limitations Patient Subjective Stated Complaint: cough, congestion, intermittent SOB, TRAMMELL Triage Nursing Assessment: pt to ED c/o cough, congestion, intermittent SOB, and TRAMMELL since friday. 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 PCP called in Z pack for her but is hoping she can be treated in this ED today as well. rates 5/10 TRAMMELL. lungs sounds wheezing on exp bilaterally, heart sounds clear. Physician History: 70 years old female vaccinated against COVID-19 presented to the ER with chief complaint of sinus congestion, nonproductive cough, headache, subjective feeling of chills for the last 5 days with progressive worsening. Also reports mild whe ezing but no shortness of breath or chest pain but having chest soreness all over bilaterally because of repeated coughing spells. Patient called her primary care and has prescription of Zithromax but wanted to get checked for COVID-19. Denies any known sick contact and did receive booster shot for COVID- 19 last week. Timing/Duration: day(s) (5), gradual onset, worse Cough Quality/Degree: moderate, dry cough Possible Cause: no prior episodes Modifying Factors: Worsens With: coughing Associated Symptoms: chills, chest pain/soreness, cough, muscle aches, nasal congestion, nasal drainage, No shortness of breath Allergies/Adverse Reactions: levofloxacin [From Levaquin] Allergy (Verified 04/25/21 13:50) theophylline Allergy (Verified 04/25/21 13:50) Home Medications: ALPRAZolam 0.25 MG [xanAX 0.25 MG] 0.5 mg PO TID PRN PRN 09/06/16 [History] Albuterol 17 gm IH Q4H PRN PRN 09/06/16 [History] Carvedilol 6.25 mg [Coreg 6.25 MG] 12.5 mg PO BID 09/06/16 [History] Citalopram Hydrobromide 20 mg* [ceLEXa 20 MG] 20 mg PO HS 09/06/16 [History] Furosemide 20 mg [Lasix 20 mg] 20 mg PO DAILY 09/06/16 [History] Levothyroxine Sodium 100 Mcg [Synthroid 100 Mcg] 100 mcg PO DAILY 09/06/16 [History] Omeprazole 20 MG [Prilosec 20 mg] 20 mg PO BID 09/06/16 [History] Spironolactone 25 mg PO DAILY 09/06/16 [History] Famotidine 20 mg [Pepcid 20 MG] 40 mg PO DAILY 07/18/17 [History] Metformin HCl 500 mg [Glucophage 500 MG] 500 mg PO BIDWM 04/25/21 [History] Hx Tetanus, Diphtheria Vaccination/Date Given: Yes Hx Influenza Vaccination/Date Given: Yes Hx Pneumococcal Vaccination/Date Given: No Immunizations Up to Date: Yes Travel Risk - International Travel Have you traveled outside of the country in past 3 weeks: No - Coronavirus Screening Are you exhibiting any of the following symptoms?: Yes Symptoms: Cough: New Onset, Shortness of Breath, Headaches/Body Aches/Fatigue Close contact with a COVID-19 positive Pt in past 14-21 Days: No - Vaccine Status Have you recieved a Covid-19 vaccination: Yes Lead Handler: Moderna - Vaccination Dates Date of 2cond Vaccination (if applicable): jul Comment: booster last week - Review of Systems Constitutional: Chills, Fatigue, Weakness Eyes: No Symptoms Ears, Nose, & Throat: Nose Congestion, Sinus Drainage Respiratory: Cough, Wheezing Cardiac: No Symptoms Abdominal/Gastrointestinal: No Symptoms Genitourinary Symptoms: No Symptoms Musculoskeletal: Myalgias Skin: No Symptoms Neurological: Headache Psychological: No Symptoms Endocrine: No Symptoms Hematologic/Lymphatic: No Symptoms - Past Medical History Pertinent Past Medical History: Yes Cardiac History: Hypertension Respiratory History: Asthma Endocrine Medical History: Hypothyroidism, Other History: Other Psycho-Social History: Depression Other Medical History: Hashimotos - Past Surgical History Past Surgical History: Yes Gastrointestinal: Appendectomy, Colon Resection Genitourinary: Kidney Surgery Female Surgical History: Section Other Surgical History: colon surgery, partial kidney removal - Social History Smoking Status: Current every day smoker How long have you smoked: 30yrs Exposure to second hand smoke: No Drug Use: none Patient Lives Alone: No - Female History Hx Now: No - Nursing Vital Signs Nursing Vital Signs: Initial Vital Signs Temperature 97.9 F 04/25/21 13:34 Pulse Rate 85 04/25/21 13:34 Respiratory Rate 18 04/25/21 13:34 Blood Pressure 128/65 04/25/21 13:34 O2 Sat by Pulse Oximetry 96 04/25/21 13:34 Pain Scale Pain Intensity 5 - Physical Exam General Appearance: no apparent distress, alert Eye Exam: PERRL/EOMI, eyes nml inspection Ears, Nose, Throat Exam: moist mucous membranes, pharyngeal erythema Neck Exam: normal inspection, supple, full range of motion Respiratory Exam: wheezing (Minimal wheezing bilaterally), No crackles/rales Cardiovascular Exam: regular rate/rhythm, normal heart sounds Back Exam: normal inspection, normal range of motion Extremity Exam: normal inspection, normal range of motion, pelvis stable Neurologic Exam: alert, oriented x 3, cooperative, intensive care anaesthetist II-XII nml as tested, normal mood/affect Skin Exam: normal color SpO2 Interpretation: normal SpO2: 96 O2 Delivery: Room Air Ordered Tests: Active Orders 24 hr Category Date Time Status CHEST 1 VIEW (PORTABLE) Stat Exams 04/25/21 13:55 Completed INFLUENZA A+B MIROSLAVA Stat Lab 04/25/21 14:25 Completed Medication Summary Discontinued Medications Generic Name Dose Route Start Last Admin Trade Name Freq PRN Reason Stop Dose Admin Methylprednisolone Sodium 0 mg 04/25/21 13:57 04/25/21 14:10 Succinate 125 mg/ Sterile IM 04/25/21 13:58 125 mg Water 2 ml STAT ONE Administration Methylprednisolone Sodium Succinate Confirm 04/25/21 14:08 Methylprednis Sod Succ 125 Mg/2 Ml Vial Administered 04/25/21 14:09 Dose 125 mg .ROUTE .STK-MED ONE Sterile Water Confirm 04/25/21 14:08 Water For Injection,Sterile 10 Ml Vial Administered 04/25/21 14:09 Dose 10 ml IJ .STK-MED ONE Lab/Rad Data: Laboratory Results 04/25/21 Range/Units 14:25 Influenza Type A Ag NEGATIVE (NEGATIVE) Influenza Type B Ag NEGATIVE (NEGATIVE) - Progress Progress: unchanged Air Movement: good Progress Note: 04/25/21 15:15 She is given Solu-Medrol. Chest x-ray negative for any acute cardiopulmonary findings. Patient is not in any distress. Rapid influenza test is negative. COVID-19 test is obtained. Recommended continue with breathing treatments/nebs at home and will give a prescription of short course of steroids. I believe patient has viral URI with cough and recommended supportive care. Discussed signs symptoms of worsening needing return to ER which she seems understanding. Stable for discharge. Blood Culture(s) Obtained: No Antibiotics given: No Counseled pt/family regarding: lab results, diagnosis, need for follow-up, rad results - Departure Departure Disposition: Home Clinical Impression: URI with cough and congestion Condition: Stable Critical Care Time: No Referrals: MICHAEL GUAMAN MD [Primary Care Provider] - Follow up/PCP as directed Instructions: Cough, Adult (DC) Additional Instructions: Take neb treatments which you have at home every 4-6 hour as needed. Take Tylenol as needed for aches and pains. Drink plenty of fluids. Follow-up with primary care for reevaluation. Return to ER for worsening cough or if develop fever chills, chest pain etc. use contact/droplet precautions until your COVID- 19 test is back. Prescriptions: Prednisone 20 mg [Deltasone 20 mg] 60 mg PO DAILY 5 Days #15 tablet
== END 2021-04-25 15:27 | disposition home or self-care (01) ==
LOC: ED 13:23
DX: J06.9 Acute upper respiratory infection, unspecified (principal); R05.9 Cough, unspecified; R09.81 Nasal congestion; Z79.899 Other long term (current) drug therapy; I10 Essential (primary) hypertension; E03.9 Hypothyroidism, unspecified
CPT/HCPCS: 71045; 87400; 96372; 99284; U0003; J2930

== ENCOUNTER 2024-10-15 10:01 | Emergency (ER) | payer MEDICARE ==
[2024-10-15 10:23] VITALS: TEMP 97.3
[2024-10-15] MEDS ORDERED: MORPHINE SULFATE 4 MG INJ ONE (10:46)
[2024-10-15] MEDS: MORPHINE SULFATE 4 MG INJ IM ONE (10:51)
--- NOTE | 2024-10-15 11:30 | XRAY ---
Indication: Pain. Comparison: None 3 view right shoulder demonstrates osteopenia, mild AC degenerative changes with small inferior acromial spurring, and incompletely visualized mild thoracic dextroscoliosis. No other bony, articular, or soft tissue abnormalities.
--- NOTE | 2024-10-15 12:15 | ERPHSYRPT ---
- History of Present Illness Time Seen by Provider: 10/15/24 10:40 Source: patient Exam Limitations: no limitations Patient Subjective Stated Complaint: Patient states she hauled tub of clothes on friday and woke up friday with horrible pain in her [facility] Triage Nursing Assessment: pt is alert and orientedx3, able to ambualte by self, pupils alo 3, cap refill in affected extremity immediate. noted swelling and abnormal protrusion right scapula. Physician History: 74 years old female with history of hypertension, hyperlipidemia, GERD, diabetes mellitus presented in the ER with complaint of right shoulder pain for the last 4 days after she lifted a heavy tote of clothes and next morning she woke up with pain in the right shoulder. Patient reports moderate to severe sharp shooting pain, have been applying ice and taking Tylenol with no significant relief. Patient denies any numbness tingling or weakness of her right upper extremity. No chest pain palpitations or shortness of breath. Pain is aggravat ed with palpation and movements of the shoulder. Denies any fall or direct trauma otherwise. Allergies/Adverse Reactions: levofloxacin [From Levaquin] Allergy (Verified 10/15/24 10:23) theophylline Allergy (Verified 10/15/24 10:23) Home Medications: ALPRAZolam 0.25 MG [xanAX 0.25 MG] 0.5 mg PO TID PRN PRN 09/06/16 [History] Albuterol 17 gm IH Q4H PRN PRN 09/06/16 [History] Carvedilol [Coreg ] 12.5 mg PO BID 09/06/16 [History] Citalopram Hydrobromide 20 mg* [ceLEXa 20 MG] 20 mg PO HS 09/06/16 [History] Furosemide 20 mg [Lasix 20 mg] 20 mg PO DAILY 09/06/16 [History] Levothyroxine Sodium 100 Mcg [Synthroid 100 Mcg] 100 mcg PO DAILY 09/06/16 [History] Omeprazole 20 MG [Prilosec 20 mg] 20 mg PO BID 09/06/16 [History] Spironolactone 25 mg PO DAILY 09/06/16 [History] Famotidine 20 mg [Pepcid 20 MG] 40 mg PO DAILY 07/18/17 [History] Metformin HCl 500 mg [Glucophage 500 MG] 500 mg PO BIDWM 04/25/21 [History] Hx Tetanus, Diphtheria Vaccination/Date Given: Yes Hx Influenza Vaccination/Date Given: Yes Hx Pneumococcal Vaccination/Date Given: No Travel Risk - International Travel Have you traveled outside of the country in past 3 weeks: No - Emerging Infectious Disease Are you exhibiting symptoms associated with any current EIDs: No - Review of Systems Constitutional: No Symptoms Ears, Nose, & Throat: No Symptoms Respiratory: No Symptoms Cardiac: No Symptoms Abdominal/Gastrointestinal: No Symptoms Genitourinary Symptoms: No Symptoms Musculoskeletal: Joint Pain Skin: No Symptoms Neurological: No Symptoms Hematologic/Lymphatic: No Symptoms Immunological/Allergic: No Symptoms - Past Medical History Pertinent Past Medical History: Yes Neurological History: No Pertinent History Cardiac History: Hypertension Respiratory History: Asthma Endocrine Medical History: Hypothyroidism Musculoskeletal History: Fractures, Osteoarthritis History: Other Psycho-Social History: Depression Other Medical History: HX FX RIGHT ANKLE 2 YEARS AGO. - Past Surgical History Past Surgical History: Yes Gastrointestinal: Appendectomy, Colon Resection Genitourinary: Kidney Surgery Female Surgical History: Section Other Surgical History: colon surgery, partial kidney removal - Social History Smoking Status: Light tobacco smoker Drug Use: none - Social Determinants of Health Will the patient participate in the screening: Yes Do you worry about a steady place to live?: No Do you have any problems with any of the following?: No known problems In the past 12 months,have you had to go without utilities?: No Transportation Issues: No Has anyone in your support network made you feel unsafe?: No Have you or anyone in your house had to go w/o enough food: No - Nursing Vital Signs Nursing Vital Signs: Initial Vital Signs Temperature 97.3 F 10/15/24 10:02 Pulse Rate 72 10/15/24 10:02 Respiratory Rate 16 10/15/24 10:02 Blood Pressure 148/84 10/15/24 10:02 O2 Sat by Pulse Oximetry 97 10/15/24 10:02 Pain Scale Pain Intensity 4 - Physical Exam General Appearance: no apparent distress Eyes, Ears, Nose, Throat Exam: normal ENT inspection Neck Exam: normal inspection, non-tender, supple, full range of motion Cardiovascular/Respiratory Exam: chest non-tender, normal breath sounds, regular rate/rhythm Shoulder Exam: bone tenderness (Acromioclavicular joint and scapular tenderness), limited ROM, soft tissue tenderness Elbow/Forearm Exam: normal inspection, non-tender, no evidence of injury, normal ROM Neuro/Tendon Exam: normal sensation, normal motor functions, normal tendon functions Mental Status Exam: alert, oriented x 3, cooperative Skin Exam: normal color SpO2 Interpretation: normal SpO2: 99 O2 Delivery: Room Air Ordered Tests: Active Orders 24 hr Category Date Time Status SHOULDER Stat Exams 10/15/24 10:41 Completed Medication Summary Discontinued Medications Generic Name Dose Route Start Last Admin Trade Name Ishan PRN Reason Stop Dose Admin Morphine Sulfate 4 mg 10/15/24 10:40 10/15/24 10:51 Morphine Sulfate 4 Mg/Ml Injection IM 10/15/24 10:41 4 mg STAT ONE Administration Morphine Sulfate Confirm 10/15/24 10:46 Morphine Sulfate 4 Mg/Ml Injection Administered 10/15/24 10:47 Dose 4 mg .ROUTE .[employer]-MED ONE - Progress Progress: improved, pain not gone completely, re-examined Progress Note: 10/15/24 12:12 74 years old is evaluated in the ER for right shoulder pain for the last 4 days after she lifted a heavy tote. Patient has significant restricted range of motion with tenderness in the AC joint area. Patient has intact distal neurovascular. She is given morphine for symptomatic relief, on reevaluation her pain is better but not completely resolved. X-rays showed changes consistent with arthritis in the AC joint but no obvious fracture dislocation interpreted by me followed by official read stating arthritic changes and spurring at the inferior acromion process. She could have some element of tendinopathy, will continue with pain medication and a short course of steroid as patient has CKD per her and is not supposed to take NSAIDs. Recommended outpatient follow-up. Placed in a sling. Discussed signs symptoms of worsening return to ER which she seems understanding. Stable for discharge. Complexity of problems addressed: Acute moderate Complexity of data reviewed/analyzed: Mild Risk of complication associated with current condition,: Mild/low risk Counseled pt/family regarding: diagnosis, need for follow-up, rad results Medical Desision Making - Diagnostic Testing Diagnostic test were ordered, analyzed, and reviewed by me: Yes Radiological Interpretation: Interpreted by me, Reviewed by me - Risk of complications The pt has a mod risk of morbidity or mortality based on: Need for prescription drug management - Departure Departure Disposition: Home Clinical Impression: Right shoulder strain Condition: Stable Critical Care Time: No Referrals: KAYY WISEMAN [Primary Care Provider, UNKNOWN] - Follow up with PCP 1 day Instructions: Shoulder Sprain (DC) Additional Instructions: Take pain medications as needed. Follow-up with orthopedics for reevaluation. Return to ER for increasing pain, difficulty movements, numbness tingling weakness of right upper extremity etc. Prescriptions: Prednisone 20 mg [Deltasone 20 mg] 40 mg PO DAILY 5 Days #10 tablet Codeine Phosphate/APAP #3 [Tylenol #3 Tablet] 1 tab PO QID PRN 3 Days #12 tablet PRN Reason: Pain
[2024-10-15 12:37] VITALS: BP 175/91; PULSE 82; RESP 18; O2SAT 97
== END 2024-10-15 12:38 | disposition home or self-care (01) ==
LOC: ED 10:01
DX: S46.911A Strain of unspecified muscle, fascia and tendon at shoulder and upper arm level, right arm, initial encounter (principal); X50.0XXA Overexertion from strenuous movement or load, initial encounter; M25.511 Pain in right shoulder; Z79.52 Long term (current) use of systemic steroids; Z79.84 Long term (current) use of oral hypoglycemic drugs; Z79.899 Other long term (current) drug therapy; Z72.0 Tobacco use
CPT/HCPCS: 73030; 96372; 99283; J2270

== ENCOUNTER 2025-05-01 08:07 | Emergency (ER) | payer MEDICARE ==
[2025-05-01 08:24] VITALS: RESP 16; TEMP 96.9
[2025-05-01 08:27] VITALS: O2SAT 97
[2025-05-01] MEDS ORDERED: DELTASONE 20 MG ONE (08:47)
[2025-05-01] MEDS ORDERED: TORAdol 30 mg Injection ONE (08:47)
--- NOTE | 2025-05-01 08:51 | ERPHSYRPT ---
- History of Present Illness Time Seen by Provider: 05/01/25 08:09 Source: patient Exam Limitations: no limitations Patient Subjective Stated Complaint: pain in right hand and wrist Triage Nursing Assessment: Pt walks to the bed, breathing is easy, skin warm and dry. She states that she is having pain in her right wrist and hand that she rates 10/10. She denies any injury. She says she began having pain months ago and was diagnosed with carpel tunnel. She was given a steroid injection 5 months ago that help for a time. Yesterday her pain became worse and has continuted. She has been taking tylenol but has not had any relief. Pulses are present, cap refill brisk. She currently denies any numbness or tingling. She states she cannot close her hand. Physician History: 74-year-old female presents to the emergency room complaining of right wrist pain patient has had prior history of carpal tunnel injections 5 months ago with shots she sees hand and wrist in the outpatient setting she reports she needs to get carpal tunnel surgery she reports she takes Tylenol arthritis with minimal relief all last night denies any fevers or chills denies any known trauma denies any falls amatory baseline denies any chest pain or shortness of breath denies abdominal pain denies any nausea vomiting diarrhea denies any rash patient reports she has got some diminished sensation in her fingers Occurred: days ago (2) Quality: intermittent Severity of Pain-Max: moderate Severity of Pain-Current: mild Extremities Pain Location: wrist: right Modifying Factors: Improves With: nothing Associated Symptoms: none Allergies/Adverse Reactions: theophylline Allergy (Verified 05/01/25 08:26) Home Medications: ALPRAZolam 0.25 MG [xanAX 0.25 MG] 0.5 mg PO TID PRN PRN 09/06/16 [History] Albuterol 17 gm IH Q4H PRN PRN 09/06/16 [History] Carvedilol [Coreg ] 12.5 mg PO BID 09/06/16 [History] Citalopram Hydrobromide 20 mg* [ceLEXa 20 MG] 20 mg PO HS 09/06/16 [History] Furosemide 20 mg [Lasix 20 mg] 20 mg PO DAILY 09/06/16 [History] Levothyroxine Sodium 100 Mcg [Synthroid 100 Mcg] 100 mcg PO DAILY 09/06/16 [History] Omeprazole 20 MG [Prilosec 20 mg] 20 mg PO BID 09/06/16 [History] Spironolactone 25 mg PO DAILY 09/06/16 [History] Famotidine 20 mg [Pepcid 20 MG] 40 mg PO DAILY 07/18/17 [History] Metformin HCl 500 mg [Glucophage 500 MG] 500 mg PO BIDWM 04/25/21 [History] Hx Tetanus, Diphtheria Vaccination/Date Given: Yes Hx Influenza Vaccination/Date Given: No Hx Pneumococcal Vaccination/Date Given: No Travel Risk - International Travel Have you traveled outside of the country in past 3 weeks: No - Emerging Infectious Disease Are you exhibiting symptoms associated with any current EIDs: No - Review of Systems Constitutional: No Fever, No Chills Eyes: No Symptoms Ears, Nose, & Throat: No Symptoms Respiratory: No Cough, No Dyspnea Cardiac: No Chest Pain, No Edema, No Syncope Abdominal/Gastrointestinal: No Abdominal Pain, No Nausea, No Vomiting, No Diarrhea Genitourinary Symptoms: No Dysuria Musculoskeletal: Joint Pain, No Back Pain, No Neck Pain Skin: No Rash Neurological: No Dizziness, No Focal Weakness, No Sensory Changes Psychological: No Symptoms Endocrine: No Symptoms All Other Systems: Reviewed and Negative - Past Medical History Pertinent Past Medical History: Yes Neurological History: No Pertinent History ENT History: No Pertinent History Cardiac History: Hypertension Respiratory History: Asthma Endocrine Medical History: Hypothyroidism Musculoskeletal History: Fractures, Osteoarthritis GI Medical History: No Pertinent History History: Other Psycho-Social History: Depression Other Medical History: HX FX RIGHT ANKLE 2 YEARS AGO. - Past Surgical History Past Surgical History: Yes Cardiac: No Pertinent History Respiratory: No Pertinent History Gastrointestinal: Appendectomy, Colon Resection Genitourinary: Kidney Surgery Female Surgical History: Section Other Surgical History: colon surgery, partial kidney removal - Social History Smoking Status: Light tobacco smoker Drug Use: none - Social Determinants of Health Will the patient participate in the screening: Yes Do you worry about a steady place to live?: No Do you have any problems with any of the following?: No known problems In the past 12 months,have you had to go without utilities?: No Transportation Issues: No Has anyone in your support network made you feel unsafe?: No Have you or anyone in your house had to go w/o enough food: No - Nursing Vital Signs Nursing Vital Signs: Initial Vital Signs Temperature 96.9 F 05/01/25 08:10 Pulse Rate 72 05/01/25 08:10 Respiratory Rate 16 05/01/25 08:10 Blood Pressure 141/72 05/01/25 08:10 O2 Sat by Pulse Oximetry 98 05/01/25 08:10 Pain Scale Pain Intensity 10 - Physical Exam General Appearance: alert Eyes, Ears, Nose, Throat Exam: moist mucous membranes Neck Exam: non-tender, supple Cardiovascular/Respiratory Exam: chest non-tender, normal breath sounds, regular rate/rhythm, no respiratory distress Abdominal Exam: non-tender, No guarding Back Exam: normal inspection, No vertebral tenderness Wrist Exam: limited ROM (Patient has numbness and tingling in the median nerve distribution) Hand Exam: limited ROM (Weakness of thumb abduction) Neuro/Tendon Exam: normal sensation, normal motor functions Mental Status Exam: alert, oriented x 3, cooperative Skin Exam: normal color, warm, dry SpO2: 97 Ordered Tests: Medication Summary Discontinued Medications Generic Name Dose Route Start Last Admin Trade Name Baironq PRN Reason Stop Dose Admin Hydrocodone Bitart/Acetaminophen Confirm 05/01/25 09:08 Hydrocodone/Apap 5/325 1 Tab Tablet Administered 05/01/25 09:09 Dose 2 tab .ROUTE .STK-MED ONE Ketorolac Tromethamine 15 mg 05/01/25 08:42 05/01/25 08:52 Ketorolac Tromethamine 30 Mg/Ml Inj IM 05/01/25 08:43 15 mg STAT ONE Administration Ketorolac Tromethamine Confirm 05/01/25 08:47 Ketorolac Tromethamine 30 Mg/Ml Inj Administered 05/01/25 08:48 Dose 30 mg .ROUTE .STK-MED ONE Oxycodone/Acetaminophen 2 tab 05/01/25 08:45 05/01/25 09:15 Oxycodone Hcl/Apap 5 Mg/325 Mg Tablet PO 05/01/25 08:46 2 tab SENT HOME W/ PATIENT STA Administration Oxycodone/Acetaminophen Confirm 05/01/25 09:11 Oxycodone Hcl/Apap 5 Mg/325 Mg Tablet Administered 05/01/25 09:12 Dose 1 tab .ROUTE .STK-MED ONE Prednisone 20 mg 05/01/25 08:44 05/01/25 08:57 Prednisone 20 Mg Tablet PO 05/01/25 08:45 20 mg STAT ONE Administration Prednisone Confirm 05/01/25 08:47 Prednisone 20 Mg Tablet Administered 05/01/25 08:48 Dose 20 mg .ROUTE .STK-MED ONE - Progress Progress Note: 05/01/25 08:50 Patient positive Phalen's test on exam will be given steroid Toradol some narcotics for home use this patient is driving home advised that she follow-up on Friday with her hand surgeon to get injections for local steroids patient be written a 5-day course of prednisone and advised to discontinue if she is getting local IM shots this week patient expressed understanding treatment plan patient was offered x-ray however she denies falling and reports she is not wanting any extra radiation - Departure Departure Disposition: Home Clinical Impression: Carpal tunnel syndrome Qualifiers: Laterality: unspecified laterality Qualified Code(s): G56.00 - Carpal tunnel syndrome, unspecified upper limb Condition: Stable Critical Care Time: No Referrals: KAYY WISEMAN [Primary Care Provider, UNKNOWN] - Follow up/PCP as directed MIKEY ROBERSON MD [NON-STAFF PHY W/O PRIVILEGES, UNKNOWN] - Follow up/PCP as directed Instructions: Carpal tunnel syndrome, Hand Pain (DC), Wrist Sprain ED Additional Instructions: wear your wrist splint, follow up with your bone and joint specialist, rest your joint. DO NOT DRIVE or OPERATE MACHINERY ON THE MEDICINE WE SEND YOU HOME WITH Prescriptions: Prednisone 20 mg [Deltasone 20 mg] 20 mg PO DAILY #5 tablet
[2025-05-01] MEDS: TORAdol 30 mg Injection IM ONE (08:52)
[2025-05-01] MEDS: DELTASONE 20 MG PO ONE (08:57)
[2025-05-01] MEDS ORDERED: NORCO 5/325 MG ONE (09:08)
[2025-05-01] MEDS ORDERED: PERCOCET TABLET 5/325MG ONE (09:11)
[2025-05-01] MEDS: PERCOCET TABLET 5/325MG PO STA (09:15)
[2025-05-01 09:27] VITALS: BP 131/78; PULSE 68
== END 2025-05-01 09:35 | disposition home or self-care (01) ==
LOC: ED 08:07
DX: G56.01 Carpal tunnel syndrome, right upper limb (principal); M25.531 Pain in right wrist; I10 Essential (primary) hypertension; Z79.84 Long term (current) use of oral hypoglycemic drugs; Z79.899 Other long term (current) drug therapy; Z72.0 Tobacco use